=== PATIENT | female | born 1940 | race Caucasian/White ===

== ENCOUNTER 2018-06-26 07:37 | Day surgery (SDC) | payer MEDICARE, BC ==
[2018-06-26] MEDS ORDERED: KETAMINE HCL 100MG/1ML VIAL INJ ONE (07:38)
[2018-06-26] MEDS ORDERED: DEXAMETHASONE 4 MG/ML 1ML VIAL IVP ONE (07:38)
[2018-06-26] MEDS ORDERED: ROPIVACAINE HCL (NAROPIN) /PF 5MG/ML 20ML VIAL IV ONE (07:38)
[2018-06-26] MEDS ORDERED: KETOROLAC 30 MG/ML VIAL IVP ONE (07:38)
[2018-06-26] MEDS ORDERED: ACETAMINOPHEN 1,000 MG/100 ML BTL IV ONE (07:38)
[2018-06-26] MEDS ORDERED: BUPIVACAINE 0.5% W/EPI MPF 30 ML VIAL IVP ONE (07:38)
[2018-06-26] MEDS ORDERED: TRANEXAMIC ACID 1,000 MG/10 ML ML IV ONE ×2 (07:38)
[2018-06-26] MEDS ORDERED: 0.9 % SODIUM CHLORIDE 10 ML VIAL IVP ONE (07:38)
[2018-06-26] MEDS ORDERED: VANCOMYCIN HCL 1 GM VIAL IVPB ONE (07:38)
[2018-06-26] MEDS ORDERED: PROPOFOL 10 MG/ML VIAL IV ONE (07:38)
[2018-06-26] MEDS ORDERED: ONDANSETRON HCL IV 4 MG/2 ML VIAL IVP ONE (07:38)
[2018-06-26] MEDS ORDERED: METOCLOPRAMIDE 10 MG TABLET PO ONE (07:38)
[2018-06-26] MEDS ORDERED: MECLIZINE 25 MG TABLET PO ONE (07:38)
[2018-06-26] MEDS ORDERED: MIDAZOLAM HCL 2MG/2ML VIAL IV ONE (07:38)
[2018-06-26] MEDS ORDERED: FAMOTIDINE 20MG TABLET PO ONE (07:38)
[2018-06-26 08:40] LABS: ABO GROUP A; ANTIBODY SCREEN NEGATIVE (NEGATIVE); RH TYPE POSITIVE
[2018-06-26] MEDS ORDERED: BISACODYL 10 MG SUPP RC PRN (11:36)
[2018-06-26] MEDS ORDERED: KETOROLAC 30 MG/ML VIAL IVP PRN ×2 (11:36)
[2018-06-26] MEDS ORDERED: ZOLPIDEM TARTRATE 5 MG TABLET PO PRN (11:36)
[2018-06-26] MEDS ORDERED: ACETAMINOPHEN W/ CODEINE 300MG/60MG TABLET PO PRN (11:36)
[2018-06-26] MEDS ORDERED: AL HYDROX/MAG HYDROX 30ML UD PO PRN (11:36)
[2018-06-26] MEDS ORDERED: ONDANSETRON HCL IV 4 MG/2 ML VIAL IVP PRN (11:36)
[2018-06-26] MEDS ORDERED: HYDROCODONE/APAP 10/325 TABLET PO PRN ×2 (11:36)
[2018-06-26] MEDS ORDERED: NALOXONE 0.4 MG/1 ML VIAL IVP PRN (11:36)
[2018-06-26] MEDS ORDERED: TRAMADOL HCL 50 MG TABLET PO PRN (11:36)
[2018-06-26] MEDS ORDERED: MAGNESIUM HYDROXIDE 30 ML UDC PO PRN (11:36)
[2018-06-26] MEDS ORDERED: HYDROMORPHONE HCL 2 MG/ML VIAL IM PRN (11:36)
[2018-06-26] MEDS ORDERED: DIPHENHYDRAMINE HCL 25 MG CAPSULE PO PRN (11:36)
[2018-06-26] MEDS ORDERED: ACETAMINOPHEN 325 MG TAB PO PRN (11:36)
[2018-06-26] MEDS ORDERED: CEFAZOLIN 2 Gram 2 GM/50 ML BAG IVPB SCH (11:45)
[2018-06-26] MEDS: POTASSIUM CHLORIDE/D5-0.9%NACL 20 MEQ/1,000 ML BAG IV SCH ×2 (13:26→18:09)
--- NOTE | 2018-06-26 15:38 | Rehab Evaluation ---
Patient Information - Patient Information Diagnosis: R knee OA Ordered Treatment: PT Evaluate and Treat Status: Initial Evaluation Surgery: Yes (R TKA) Date of Surgery: 06/26/18 Past Medical/Surgical Hx: PAST MEDICAL/SURGICAL HISTORY Past Surgical History bilat ear sx mastoid and titanium implant T and A nasal sx deviated septum shoulder sx right CTR left c scopes EGD PMH - Respiratory Hx Respiratory Disorders Yes Hx Bronchitis Yes: nothing recent Comment: states she stops breathing when sleeping on her back PMH - Cardiovascular Hx Cardiovascular Disorders No Hx Hypertension Yes: elevated at times "white coat" always reads good at home Exercise Tolerance Poor PMH - Neuro Hx Neurological Disorders No PMH - GI Hx Gastrointestinal Disorders Yes Hx Gastroesophageal Reflux Yes: occassionally Hx Hiatal Hernia Yes PMH - Hx Genitourinary Disorders No PMH - Endocrine Hx Endocrine Disorders Yes Hx Thyroid Disease Yes: on meds hypo PMH - Musculoskeletal Hx Musculoskeletal Disorders Yes Hx Arthritis Yes: hands knee PMH - Psych Hx Psychiatric Problems Yes Hx Anxiety Yes: RE SX PMH - Hematology/Oncology Hx Hematology/Oncology No Disorders Premorbid Status: Detail (The patient was independent with all mobility and ambulation prior to surgery.) Social History: Detail (The patient lives with spouse in 2 story house with 3 large steps and 1 small step with one hand rail. The patient is staying on the first floor following surgery. The bathroom is equipped with a tub/shower combination and an elevated toilet. No grab bars are present. The patient has a front wheeled walker and a standard cane.) Precautions: Artesian, Fall, Other (WBAT on the R LE) - Time With Patient Total Time Spent With Patient (Min): 25 Treatment Procedures: Detail (Initial Evaluation, gait training) Subjective Information - Subjective Information Per Patient (The patient had complaints of R Knee throbbing pain, level 3 using 0-10 pain scale.) Objective Data - Mental Status Patient Orientation: Oriented x3 - Visual Perception Appears within normal limits for therapeutic activities - ROM Not within normal limits (The patient's R knee AROM is limited as to be expected following surgery. All other LE AROM is WNL.) - Strength/Tone Not within normal limits (The patient's R LE strength was not tested secondary to s/p surgery, however strength is functional ie: patient is able to complete a SLR.) - Bed Mobility Independent (The patient is independent with supine to and from sit transfer.) - Transfers Independent (The patient is independent with sit to and from stand transfer.) - Balance Balance Sitting: Good Balance Standing: Good - Sensation Intact - Gait Detail (The patient ambulated with front wheeled walker WBAT on the R LE a distance of 20 feet x 1 with CG/supervision of one for safety. The patient had complaints of lightheadness when returning to bed.) Therapy Assessment - Therapy Assessment Detail (The patient was independent with bed mobility, transfers and required supervision/ CG for safety. Feel the patient will progress well with mobility.) Problem List - Problem List Physical Therapy Problem List: Detail (1) Decreased R knee AROM as to be expected following surgery 2) Decreased R LE strength as to be expected following surgery) Goals - Goals Physical Therapy Goals: 1) The patient will ambulate with appropriate assistive device household distances independently. 2) The patient will ambulate on stairs using proper technique with supervision for safety. 3) The patient will be independent with TKA HEP. Prognosis - Prognosis Good Plan - Plan Physical Therapy Plan: PT 1-2 sessions for instruction in HEP gait training on levels and stairs.
[2018-06-26] MEDS: ACETAMINOPHEN W/ CODEINE 300MG/60MG TABLET PO PRN (20:58)
[2018-06-26] MEDS: VANCOMYCIN HCL 1,000 MG in DEXTROSE 5 % IN WATER 250 ML IVPB SCH ×2 (21:00)
[2018-06-26] MEDS: DOCUSATE SODIUM 100 MG CAPSULE PO SCH (21:04)
[2018-06-27] MEDS: ACETAMINOPHEN W/ CODEINE 300MG/60MG TABLET PO PRN ×2 (02:35→07:55)
[2018-06-27] MEDS: POTASSIUM CHLORIDE/D5-0.9%NACL 20 MEQ/1,000 ML BAG IV SCH ×3 (02:48→13:11)
[2018-06-27 06:52] LABS: HEMATOCRIT 34.7 % (35.0-47.0); HEMOGLOBIN 10.9 gm/dl (11.6-16.0)
[2018-06-27] MEDS ORDERED: PATIENT OWN MED: LEVOTHYROXINE 50 MCG PO SCH (07:00)
[2018-06-27 07:13] LABS: BLOOD UREA NITROGEN 13 mg/dL (8-23); CREATININE 0.6 mg/dL (0.5-0.9); EST GLOMERULAR FILTRATION RATE > 60 mL/min; GLUCOSE,RANDOM 113 mg/dL (74-109)
--- NOTE | 2018-06-27 09:00 | Operative Note ---
DATE OF SURGERY: 06/26/2018 PREOPERATIVE DIAGNOSIS: End-stage arthrosis of the right knee. POSTOPERATIVE DIAGNOSIS: End-stage arthrosis of the right knee. OPERATION: Cemented right total knee arthroplasty using [employer] Stacy II components with a size 4 cobalt chrome femur, a size 4 stem tibia baseplate, a 9 mm lipped tibial insert, and a 32 mm all plastic patella. Staff Surgeon: Marcin Landeros MD Anesthesia: Spinal. PREPARATION: Chloraprep. INDIVIDUAL CONSIDERATIONS: None. PROCEDURE: The patient was taken to the operating room, placed supine on the operating room table. She had a successful induction of spinal anesthetic. The right lower extremity was prepped and draped in the usual fashion. The limb was elevated and tourniquet was inflated to 300 mmHg. The patient had a midline approach to the knee. Sharp dissection carried down through skin and subcutaneous tissue. Small veins were coagulated with a Bovie. A medial arthrotomy was performed. The patella was everted and the knee was flexed. She had exposed bone in the medial and patellofemoral compartments. Fat pad was resected, ACL was sacrificed, provisional anterior meniscectomies were performed. The capsule was released from the medial proximal tibia. The initial femoral jet pilot hole was then made freehand. The intramedullary femoral cutting jig was placed. It was cut in 7.0 degrees of valgus and adjusted for rotation and secured with pins. The initial transverse cut was made. The skin guide was placed in the anterior and posterior jet pilot holes. It was found that a size 4 would be appropriate. The anterior and posterior cuts followed by chamfer cuts were made. Osteophytes removed, and a size 4 trial was placed and found to fit well. The tibia was brought forward, and the remainder of the meniscal remnants removed with a Bovie. The extraarticular tibial cutting jig was placed. It was cut in neutral with a 3-degree AP slope. It was set for a 9 mm resection keyed off the high lateral side and secured with pins. When cutting the tibia, care was taken to preserve the PCL insertion on the tibia. After removing osteophytes, I could fit a size 4 baseplate and it was adjusted for rotation and secured with pins. With a 9 mm trial and femoral trial, there was excellent motion and stability, ligamentous balance, rotation alignment were thought to be normal. Femoral jet pilot holes were impacted and the tri-flange tibial keel stamp was impacted. These trial components were removed. The tourniquet was let down briefly to get bleeders posteriorly and then placed back up again. The patient had a thick patella and roughly 9 mm of bone was removed freehand. I was easily able to fit a 35 patella. The 3 jet pilot holes were then drilled. The knee was then thoroughly irrigated out with pulsatile Betadine and saline to remove any visual or palpable debris. Bony surfaces were then dried. A size 4 stem tibia baseplate was cemented into place followed by impaction of the 9 mm lipped tibial insert followed by cementing in the size 4 cobalt chrome femur followed by cementing in the 32 mm patella. The implant surfaces were compressed, excess cement was removed, and after the cement had set, there was excellent motion and stability, ligamentous balance, rotation alignment, and patellofemoral tracking were normal. No lateral release was required. Tourniquet was let down. Hemostasis was obtained with a Bovie. I then infiltrated the skin and subcu and periosteum with 30 mL of 0.5% Marcaine with epinephrine. Final irrigation and then the capsule was then closed with a running #2 quill. Subcu was closed with running 0 quill, skin was closed with vishal. The patient did receive 1 g of tranexamic acid IV prior. We mixed 1 g of tranexamic acid with 30 mL of saline and injected into the knee and a sterile bulky compressive LOURDES-type dressing was applied. The patient tolerated the procedure well. Needle and sponge counts were correct. Estimated blood loss was minimal, and she was taken back to recovery in good condition. There were no complications. ROSANGELA
[2018-06-27] MEDS: DOCUSATE SODIUM 100 MG CAPSULE PO SCH (09:01)
[2018-06-27] MEDS: VANCOMYCIN HCL 1,000 MG in DEXTROSE 5 % IN WATER 250 ML IVPB SCH ×2 (09:01)
[2018-06-27] MEDS ORDERED: FERROUS SULFATE 325 MG TAB PO SCH (10:00)
[2018-06-27] MEDS ORDERED: RIVAROXABAN 10 MG TABLET PO SCH (10:00)
--- NOTE | 2018-06-27 11:28 | Rehab Evaluation ---
Patient Information - Patient Information Diagnosis: R knee OA Ordered Treatment: OT Evaluate and Treat Status: Initial Evaluation Surgery: Yes (R TKA) Date of Surgery: 06/26/18 Past Medical/Surgical Hx: PAST MEDICAL/SURGICAL HISTORY Past Surgical History bilat ear sx mastoid and titanium implant T and A nasal sx deviated septum shoulder sx right CTR left c scopes EGD PMH - Respiratory Hx Respiratory Disorders Yes Hx Bronchitis Yes: nothing recent Comment: states she stops breathing when sleeping on her back PMH - Cardiovascular Hx Cardiovascular Disorders No Hx Hypertension Yes: elevated at times "white coat" always reads good at home Exercise Tolerance Poor PMH - Neuro Hx Neurological Disorders No PMH - GI Hx Gastrointestinal Disorders Yes Hx Gastroesophageal Reflux Yes: occassionally Hx Hiatal Hernia Yes PMH - Hx Genitourinary Disorders No PMH - Endocrine Hx Endocrine Disorders Yes Hx Thyroid Disease Yes: on meds hypo PMH - Musculoskeletal Hx Musculoskeletal Disorders Yes Hx Arthritis Yes: hands knee PMH - Psych Hx Psychiatric Problems Yes Hx Anxiety Yes: RE SX PMH - Hematology/Oncology Hx Hematology/Oncology No Disorders Premorbid Status: Detail (The patient was independent with all mobility, home mgmt, meal prep and laundry prior to surgery.) Social History: Detail (The patient lives with spouse in 2 story house with 3 large steps and 1 small step with one hand rail at the entrance. The patient is staying on the first floor following surgery. The bathroom is equipped with a tub/shower combination and an elevated toilet, the patient typically stands to shower. No grab bars are present. The patient has a front wheeled walker and a standard cane.) Precautions: Murray, Fall, Other (WBAT on the R LE) - Time With Patient Total Time Spent With Patient (Min): 40 Treatment Procedures: Detail (OT eval low complexity) Subjective Information - Subjective Information Per Patient Objective Data - Pain Pain Present: Yes (08/19) - Mental Status Patient Orientation: Oriented x3 - Visual Perception Appears within normal limits for therapeutic activities - ROM Within normal limits (Christopher UE AROM WNL) - Strength/Tone Within normal limits (Christopher UE strength WNL) - Coordination Appears within normal limits for therapeutic activities - Bed Mobility Independent (Ind with supine to sit) - Transfers Independent (Ind with sit to stand from EOB and chair heights) - Balance Balance Sitting: Good Balance Standing: Good - Sensation Intact - Gait Detail (Pt ambulating in room with 2 wheeled walker) - ADL's/IADL's Detail (Pt educated and able to demonstrate learning of modified LE dressing techniques including doffing slipper socks and donning pants, socks and tennis shoes. Pt educated re: kitchen and shower safety and modifications, pt verbalizes learning.) Therapy Assessment - Therapy Assessment Detail (Pt is Ind with modified LE dressing techniques.) Problem List - Problem List Physical Therapy Problem List: Detail (1) Decreased R knee AROM as to be expected following surgery 2) Decreased R LE strength as to be expected following surgery) Occupational Therapy Problem List: Detail (No current IP OT problems identified. ) Goals - Goals Physical Therapy Goals: 1) The patient will ambulate with appropriate assistive device household distances independently. 2) The patient will ambulate on stairs using proper technique with supervision for safety. 3) The patient will be independent with TKA HEP. Occupational Therapy Goals: No current IP OT goals identified. Prognosis - Prognosis Good Plan - Plan Physical Therapy Plan: PT 1-2 sessions for instruction in HEP gait training on levels and stairs. Occupational Therapy Plan: No further IP OT recommended. Thank you for this referral.
--- NOTE | 2018-06-27 11:43 | Physical Therapy Tx Note ---
Physical Therapy Tx Note - Treatment Note Tolerated: Good Total Time Spent With Patient: 25 Physical Therapy Tx Note: Detail (The patient was in bed when PT arrived. The patient's was present for treatment. The patient ambulated with front wheeled walker a distance of 54 feet x 2 WBAT on the R LE independently. The patient ambulated on stairs with use of one railing and arm hold assist of her using proper technique. The patient completed TKA HEP which included the following: seated heel slides, gluteal sets, hamstring sets, quad sets, ankle pumps. The patient was too painful to complete SLR but had good understanding of the proper technique of the exercise. All inpatient PT goals have been met. The patient is to continue with Home PT.) Physical Therapy Problem List: Detail (1) Decreased R knee AROM as to be expected following surgery 2) Decreased R LE strength as to be expected following surgery) Physical Therapy Goals: 1) The patient will ambulate with appropriate assistive device household distances independently.(Goal Met). 2) The patient will ambulate on stairs using proper technique with supervision for safety. (Goal Met ). 3) The patient will be independent with TKA HEP. ( Goal Met) Physical Therapy Plan: The patient has completed all inpatient PT goals and is discharged from inpatient PT. The patient is to continue with Home PT.
== END 2018-06-27 14:10 | disposition home health service (06) ==
LOC: SUR 07:37 → MEDSURG 12:45 → SUR 06-27 14:10
PROVIDERS: ATTEND Orthopaedic Surgery
DX: M17.11 Unilateral primary osteoarthritis, right knee (principal)
CPT/HCPCS: 27447; 01402; 64447; 85018; 85014; 80048; 86900; 86901; 86850; J1885 ×2; J2405; J3370 ×2; J3490 ×2; J2795; 97110; 97530; C1776; J3480; J7060